=== PATIENT | male | born 1965 | race Caucasian/White ===

== ENCOUNTER 2018-01-23 11:37 | Emergency (ER) | payer BC ==
[2018-01-23 11:46] VITALS: BP 133/85
--- NOTE | 2018-01-23 12:01 | ED Physician Documentation ---
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 and has trouble with his RLE twisted knee on stairs several days ago was OK for a few days then aggravated it yesterday and now is is more painful, phylicia medially and swollen also knee is warm no fever prior ACL in 1988 Review of Systems Constitutional: denies: Fever Cardiac: denies: Chest pain / pressure Respiratory: denies: Dyspnea Musculoskeletal: reports: Joint pain Endocrine: denies: Easy bruising / bleeding Immunocompromised: denies: Immunocompromised PD PAST MEDICAL HISTORY - Present Medications Home Medications: Ambulatory Orders Medication Instructions Recorded Confirmed DULoxetine [Cymbalta] mg PO DAILY 01/23/18 Gabapentin mg PO 01/23/18 - Allergies Allergies/Adverse Reactions: Allergies Allergy/AdvReac Type Severity Reaction Status Date / Time No Known Drug Allergies Allergy Verified 01/23/18 11:45 PD ED PE NORMAL - Vitals Vital signs reviewed: Yes - Cardiac Cardiac: RRR - Respiratory Respiratory: No respiratory distress - Derm Derm: Normal color - Extremities Extremities: Other (LLE knee + effusion, warm, no erythema, able to range without pain, no ACL laxity appreciated, pain and catch medially with meniscal testing, no popliteal or calf TTP, MSV intact) Results - Vitals Vitals: Vital Signs - 24 hr 01/23/18 11:42 Temperature 36.9 C Heart Rate 91 Respiratory 16 Rate Blood Pressure 133/85 H O2 Saturation 99 Oxygen O2 Source Room air - Rads (name of study) knee Radiology: See rad report (OA, jt effsion, prior ACL) PD MEDICAL DECISION MAKING - ED course ED course: hx and exam suggest medial meniscus injury SO is concerned for infection 2/2 edema and warmth but there is no redness, no open wound or portal for infection and he is able to range knee well without sig pain, and the sx atrted after a twisting injury - so feel infection very unlikely - Sepsis Event Vital Signs: Vital Signs - 24 hr 01/23/18 11:42 Temperature 36.9 C Heart Rate 91 Respiratory 16 Rate Blood Pressure 133/85 H O2 Saturation 99 Oxygen O2 Source Room air Departure - Departure Disposition: 01 Home, Self Care Clinical Impression: Medial meniscus tear Qualifiers: Tear current or old: current Encounter type: initial encounter Meniscus tear of knee type: unspecified type Laterality: left Qualified Code(s): S83.242A - Other tear of medial meniscus, current injury, left knee, initial encounter Condition: Good Instructions: ED Meniscal Injury Knee Poss Follow-Up: [facility] [Provider Group] Comments: The mechanism of injury and the exam suggest a meniscal tear. At this point i do not think the knee is infected - although swollen and warm, the knee is not red and you are able to range it well and you have no fever. Recommend an GRAHAM wrap ice and elevation for the swelling, motrin and tylenol for the pain, and I have referred you to orthopedics If you get worse, especially if you develop a fever or the knee is red and becomes more painful to bend, please come back to the ER for us to see it again
--- NOTE | 2018-01-23 12:45 | XRAY Report ---
Procedure Date: 01/23/2018 Accession Number: [id number] / [id number] Procedure: XR - Knee 4 View LT CPT Code: FULL RESULT: EXAM: LEFT KNEE RADIOGRAPHY EXAM DATE: 01/23/2018 12:31 PM. CLINICAL HISTORY: Pain and swelling. COMPARISON: None. TECHNIQUE: 5 views. FINDINGS: Bones: Postoperative changes from ACL repair. No fractures or bone lesions. Joints: Joint effusion. Chondrocalcinosis is present. Minimal patellar marginal osteophyte formation. Soft Tissues: Normal. No soft tissue swelling. IMPRESSION: 1. No evidence of acute osseous abnormality. 2. Chondrocalcinosis. 3. Joint effusion. 4. Mild patellofemoral osteoarthritis. 5. Postoperative changes from ACL repair. [facility]
[2018-01-23] MEDS ORDERED: IBUPROFEN 400 MG TABLET PO STA (13:01)
[2018-01-23] MEDS ORDERED: ACETAMINOPHEN 325 MG TABLET PO STA (13:01)
== END 2018-01-23 13:19 | disposition home or self-care (01) ==
LOC: ED 11:37
DX: S83.242A Other tear of medial meniscus, current injury, left knee, initial encounter (principal); X50.9XXA Other and unspecified overexertion or strenuous movements or postures, initial encounter
CPT/HCPCS: 99283

== ENCOUNTER 2018-02-23 08:26 | Outpatient (CLI) | payer BC ==
--- NOTE | 2018-02-23 16:37 | MRI Report ---
Reason: KNEE JOINT PAIN,LEFT Procedure Date: 02/23/2018 Accession Number: [id number] / [id number] Procedure: MRI - Knee LT W/O CPT Code: FULL RESULT: EXAM: LEFT KNEE MRI WITHOUT CONTRAST EXAM DATE: 02/23/2018 09:24 AM. CLINICAL HISTORY: Knee joint pain, left. Patient reports history of surgery, instability. COMPARISON: Radiographs 01/23/2018. TECHNIQUE: Multiplanar, multisequence T1-weighted and fluid-sensitive sequences of the knee without contrast. Other: None. FINDINGS: Bones: Susceptibility artifact from internal fixation hardware from anterior cruciate ligament reconstruction moderately limits evaluation. No gross fracture or bone lesion. Articular Cartilage: Deep partial-thickness fissure/tear central aspect medial femoral condyle. Shallow partial-thickness loss and irregularity at the posterior aspect lateral tibial plateau. Deep partial-thickness fissure/tear at the midportion median ridge of the patella. Shallow partial-thickness loss and irregularity/fissuring at the central trochlea. Medial Meniscus: Intrasubstance degeneration at the body and posterior horn. Horizontal tear contacts the inferior articular surface posterior horn. Lateral Meniscus: Intrasubstance degeneration anterior horn, body, and posterior horn. Horizontal tear contacts the inferior articular surface. This is ill-defined with isointense signal. Cruciate Ligaments: Diffusely diminutive appearance of the anterior cruciate ligament graft. A few fibers versus scar may remain intact. Posterior cruciate ligament intact. Collateral Ligaments: The medial collateral and lateral collateral ligamentous structures are intact. Tendons: Postsurgical changes of the patellar tendon graft harvest. Mild thickening of the residual medial fibers. Quadriceps, semimembranosus, and popliteus tendons are unremarkable. Musculature: No edema or fatty atrophy. Other: Large joint effusion with synovitis. Moderate sized popliteal cyst with leak. No loose bodies. The medial and lateral retinacula are intact. Mild subcutaneous edema anteriorly. Postsurgical changes in Hoffa's fat pad. IMPRESSION: 1. High-grade partial versus complete disruption anterior cruciate ligament graft. 2. Intrasubstance degeneration medial meniscus with horizontal tear of the posterior horn. 3. Intrasubstance degeneration lateral meniscus with horizontal tear posterior horn. This may be partially healed given the isointense signal. 4. Large joint effusion with synovitis. 5. Moderate popliteal cyst with leak. 6. Mild tricompartmental cartilage loss with fissuring/tearing. [facility] MUSCULOSKELETAL RADIOLOGY SECTION
== END 2018-02-23 08:27 | disposition home or self-care (01) ==
LOC: DI 08:26
PROVIDERS: ATTEND Orthopaedic Surgery Sports Medicine
DX: T84.410A Breakdown (mechanical) of muscle and tendon graft, initial encounter (principal); M23.222 Derangement of posterior horn of medial meniscus due to old tear or injury, left knee; M23.252 Derangement of posterior horn of lateral meniscus due to old tear or injury, left knee; M25.462 Effusion, left knee; M65.9 Synovitis and tenosynovitis, unspecified; M66.0 Rupture of popliteal cyst; M23.92 Unspecified internal derangement of left knee

== ENCOUNTER 2018-02-24 07:56 | Outpatient (CLI) | payer BC ==
[2018-02-24 08:18] LABS: BASOPHILS % (AUTO) 0.4 %; EOSINOPHILS # (AUTO) 0.3 10^3/uL (0.0-0.7); EOSINOPHILS % (AUTO) 5.5 %; HGB - HEMOGLOBIN 14.2 g/dL (14.0-18.0); LYMPHOCYTES # (AUTO) 1.3 10^3/uL (1.5-3.5); LYMPHOCYTES % (AUTO) 23.5 %; MEAN CORPUSCULAR HGB CONC 34.2 g/dL (32.0-36.0); MEAN CORPUSCULAR VOLUME 87.6 fL (80.0-94.0); MEAN PLATELET VOLUME 7.4 fL (7.4-11.4); MONOCYTES # (AUTO) 0.4 10^3/uL (0.0-1.0); MONOCYTES % (AUTO) 6.3 %; NEUTROPHILS # (AUTO) 3.6 10^3/uL (1.5-6.6); NEUTROPHILS % (AUTO) 64.3 %; PLT - PLATELET COUNT 259 10^3/uL (130-450); RED BLOOD COUNT 4.72 10^6/uL (4.70-6.10); RED CELL DISTRIBUTION WIDTH 14.3 % (12.0-15.0); WHITE BLOOD COUNT 5.6 x10^3/uL (4.8-10.8)
[2018-02-24 08:39] LABS: ALBUMIN/GLOBULIN RATIO 1.2 (1.0-2.2); ALKALINE PHOSPHATASE 63 IU/L (42-121); ALT ALANINE AMINOTRANSFERASE 23 IU/L (10-60); AST ASPARTATE AMINOTRANSFERASE 22 IU/L (10-42); BILIRUBIN,TOTAL 0.7 mg/dL (0.2-1.0); BUN - BLOOD UREA NITROGEN 14 mg/dL (6-20); CARBON DIOXIDE - CO2 28 mmol/L (21-32); CHLORIDE 103 mmol/L (101-111); CHOLESTEROL 321 mg/dL; CREATININE 0.8 mg/dL (0.6-1.2); GFR - MDRD 102 (>89); GLUCOSE 116 mg/dL (70-100); HDL CHOLESTEROL 46 mg/dL; LDL CHOLESTEROL,CALCULATED 240 mg/dL; LDL/HDL RATIO 5.2 (<3.6); SODIUM 138 mmol/L (135-145); TOTAL PROTEIN 7.4 g/dL (6.7-8.2); VLDL CHOLESTEROL 35 mg/dL
== END 2018-02-24 07:57 | disposition home or self-care (01) ==
LOC: LAB 07:56
PROVIDERS: ATTEND Nurse Practitioner
DX: E78.2 Mixed hyperlipidemia (principal)
CPT/HCPCS: 36415; 80053; 80061; 83721; 85025

== ENCOUNTER 2018-03-11 12:07 | Day surgery (SDC) | payer BC ==
--- NOTE | 2018-03-11 11:55 | ANESTHESIA ---
Pre-Anesthesia VS, & Labs - Diagnosis Screening - Procedure Colonoscopy Height 5 ft 10 in Body Mass Index 30.1 - NPO >8 hours Home Medications and Allergies Home Medications: Ambulatory Orders Medication Instructions Recorded Confirmed DULoxetine [Cymbalta] 90 mg PO DAILY 01/23/18 02/24/18 Gabapentin 600 mg PO QDBREAKFAST 01/23/18 02/24/18 Gabapentin 1,200 mg PO .QDLUNCH,QDDINNER 02/24/18 02/24/18 Methocarbamol 750 mg PO TID PRN 02/24/18 02/24/18 DULoxetine [Cymbalta] 90 mg PO DAILY 01/23/18 Gabapentin 600 mg PO QDBREAKFAST 01/23/18 Gabapentin 1,200 mg PO .QDLUNCH,QDDINNER 02/24/18 Methocarbamol 750 mg PO TID PRN 02/24/18 Allergies/Adverse Reactions: Allergies Allergy/AdvReac Type Severity Reaction Status Date / Time No Known Drug Allergies Allergy Verified 02/24/18 09:58 Anes History & Medical History - Anesthetic History Anesthesia Complications: reports: No previous complications Family history of Anesthesia Complications: Denies Family history of Malignant Hyperthermia: Denies - Medical History Cardiovascular: reports: High cholesterol Pulmonary: reports: Sleep apnea Gastrointestinal: reports: None Urinary: reports: None Neuro: reports: None Musculoskeletal: reports: Osteoarthritis, Chronic back pain Endocrine/Autoimmune: reports: None Blood Disorders: reports: None Skin: reports: None Smoking Status: Never smoker - Surgical History Orthopedic: ACL reconstruction, Spine surgery Exam General: Alert, Oriented x3, Cooperative, No acute distress Mouth Opening: Greater than 4 Fingerbreadths Neck Mobility: Normal Mallampati classification: I Thyromental Distance: greater than 6 cm Respiratory: Lungs clear, Normal breath sounds, No respiratory distress, No accessory muscle use Cardiovascular: Regular rate Neurological: Normal gait, Normal speech Mental/Cognitive Status: Alert/Oriented X3, Normal for patient Cognitive Status: Within normal limits Plan Anesthesia Type: MAC Consent for Procedure(s) Verified and Reviewed: Yes Code Status: Attempt Resuscitation ASA classification: 2-Mild systemic disease Is this case an emergency?: No
[~2018-03-11 12:07] MED LIST: GLYCOPYRROLATE 1 MG/5 ML VIAL IVP ONE; KETAMINE 500 MG/10 ML VIAL IVP ONE; MIDAZOLAM 2 MG/2 ML VIAL IVP ONE; PROPOFOL 200 MG/20 ML VIAL IVP ONE
[2018-03-11] MEDS ORDERED: LACTATED RINGERS 1,000 ML IV ONE (12:24)
[2018-03-11 14:10] VITALS: BP 122/85
== END 2018-03-11 12:08 | disposition home or self-care (01) ==
LOC: SDS 12:07
PROVIDERS: ATTEND Internal Medicine Gastroenterology
PROC: 0DBP8ZZ Excision of Rectum, Via Natural or Artificial Opening Endoscopic (ICD-10-PCS; principal; 2018-03-11 12:45)
DX: Z12.11 Encounter for screening for malignant neoplasm of colon (principal); D12.8 Benign neoplasm of rectum; K57.30 Diverticulosis of large intestine without perforation or abscess without bleeding; G47.30 Sleep apnea, unspecified; R06.83 Snoring; E66.9 Obesity, unspecified; F41.9 Anxiety disorder, unspecified; G89.29 Other chronic pain; M54.42 Lumbago with sciatica, left side; M19.90 Unspecified osteoarthritis, unspecified site; Z68.30 Body mass index [BMI] 30.0-30.9, adult
CPT/HCPCS: 45380; J7120

== ENCOUNTER 2018-05-12 06:09 | Day surgery (SDC) | payer BC ==
[2018-05-12] MEDS ORDERED: ceFAZolin 2 GM/50 ML 2 GM/50 ML BAG IV ONE (06:12)
[2018-05-12] MEDS ORDERED: LACTATED RINGERS 1,000 ML IV ONE ×2 (06:31→10:04)
--- NOTE | 2018-05-12 07:03 | ANESTHESIA ---
Pre-Anesthesia VS, & Labs - Diagnosis Left knee anterior cruciate ligament tear, medial and laberal meniscal tear - Procedure Left knee revision arthroscopically assisted ACL reconstruction with allograft, partial medial and lateral meniscectomy, possible shaving chondroplasty Vital Signs: Temp Pulse Resp BP Pulse Ox 36.4 C L 75 18 140/86 H 97 05/12/18 06:24 05/12/18 06:24 05/12/18 06:24 05/12/18 06:24 05/12/18 06:24 Height 5 ft 10 in Weight (kg) 94 kg Body Mass Index 30.1 - NPO >8 hours Home Medications and Allergies Home Medications: Ambulatory Orders Colestipol HCl 2 gm PO BID 05/06/18 DULoxetine [Cymbalta] 90 mg PO DAILY 01/23/18 Gabapentin 600 mg PO QDBREAKFAST 01/23/18 Gabapentin 1,200 mg PO .QDLUNCH,QDDINNER 02/24/18 Methocarbamol 750 mg PO TID PRN 02/24/18 Colestipol HCl 2 gm PO BID 05/06/18 Allergies/Adverse Reactions: Allergies Allergy/AdvReac Type Severity Reaction Status Date / Time No Known Drug Allergies Allergy Verified 02/24/18 09:58 Anes History & Medical History - Anesthetic History Anesthesia Complications: reports: No previous complications - Medical History Cardiovascular: reports: High cholesterol Pulmonary: reports: Sleep apnea (Possible, snores at night. No sleep study or CPAP) Gastrointestinal: reports: None Urinary: reports: None Neuro: reports: None Musculoskeletal: reports: Osteoarthritis, Chronic back pain (Neuropathy in left foot) Endocrine/Autoimmune: reports: None Blood Disorders: reports: None Skin: reports: None Smoking Status: Never smoker Psychosocial: reports: Depression - Surgical History General: Colonoscopy Orthopedic: ACL reconstruction, Shoulder arthroplasty, Spine surgery Exam General: Alert, Oriented x3, Cooperative, No acute distress Dental: WNL Mouth Openin Fingerbreadth Neck Mobility: Normal Mallampati classification: II Thyromental Distance: 4-6 cm Respiratory: Lungs clear, Normal breath sounds, No respiratory distress, No accessory muscle use Cardiovascular: Regular rate, Normal S1, Normal S2, No murmurs Mental/Cognitive Status: Alert/Oriented X3, Normal for patient Plan Anesthesia Type: General, Femoral Block (Left) Regional Block: Per Surgeon's request for Post Op pain control Consent for Procedure(s) Verified and Reviewed: Yes Code Status: Attempt Resuscitation ASA classification: 2-Mild systemic disease Is this case an emergency?: No
[2018-05-12] MEDS ORDERED: BACITRACIN 50,000 UNIT VIAL ONE (07:27)
[2018-05-12] MEDS ORDERED: SODIUM CHLORIDE 0.9% 10 ML ONE (07:27)
[2018-05-12] MEDS ORDERED: BUPIVACAINE 0.25% PF 30 ML VIAL ONE (08:11)
[2018-05-12] MEDS ORDERED: ONDANSETRON 4 MG/2 ML VIAL IVP ONE (08:15)
[2018-05-12] MEDS ORDERED: PROPOFOL 200 MG/20 ML VIAL IVP ONE (08:15)
[2018-05-12] MEDS ORDERED: KETOROLAC 30 MG/ML VIAL IVP ONE (08:15)
[2018-05-12] MEDS ORDERED: ROPIVACAINE 0.5% PF 20 ML AMPULE EP ONE (08:15)
[2018-05-12] MEDS ORDERED: HYDROmorphone 1 MG/ML CARPUJECT IVP ONE (08:15)
[2018-05-12] MEDS ORDERED: fentaNYL 100 MCG/2 ML VIAL IVP ONE (08:15)
[2018-05-12] MEDS ORDERED: MIDAZOLAM 2 MG/2 ML VIAL IVP ONE (08:15)
[2018-05-12] MEDS ORDERED: ePHEDrine 50 MG/ML AMP IVP ONE (08:15)
[2018-05-12] MEDS ORDERED: DEXAMETHASONE 4 MG/ML VIAL IVP ONE (08:15)
[2018-05-12] MEDS ORDERED: BUPIVACAINE 0.25% PF 30 ML VIAL SUBQ ONE (08:31)
--- NOTE | 2018-05-12 10:34 | IMMEDIATE POSTOPERATIVE NOTE ---
Immediate Postoperative Note - Procedure Note Procedure Date: 05/12/18 Pre-Op Diagnosis: RIGHT ACL TEAR, S/P PREVIOUS RECON, MMT, LMT, CHONDROMALCIA Procedure: RIGHT SCOPE ASSISTED ACL RECON W/ ALLO, PARTIAL MED/LAT MEN, SHAVING CHONDR Post-Op Diagnosis: SAME Primary Surgeon: SIM Raymond Mill Operator: ZACHARIAH Anesthesia Type: General LMA, Local, Regional block Findings: ACL deficient knee medial and lateral meniscus tears chondromalacia medial and patellofemoral compartments. Complications: No complications Estimated Blood Loss (in cc): 100 Plan of Care: Discharge to home care when meets criteria Patient will be nonweightbearing left lower extremity while femoral nerve block is working. When femoral nerve block is worn off he may bear weight with the knee brace locked fully straight with crutches and assistance as needed. When at rest he may remove the brace and work on range of motion. Patient may ice intermittently but should take breaks and do skin checks. He will follow-up in 10-14 days or sooner should problems questions or worsening of his condition arise.
[2018-05-12] MEDS ORDERED: oxyCODONE 5 MG TABLET PO PRN (10:36)
[2018-05-12] MEDS ORDERED: ONDANSETRON 4 MG/2 ML VIAL IVP PRN (10:36)
[2018-05-12] MEDS ORDERED: oxyCODONE 5 MG TABLET ONE (11:00)
[2018-05-12 11:23] VITALS: BP 150/92
--- NOTE | 2018-05-12 15:29 | OPERATIVE REPORT ---
DATE OF SERVICE: 05/12/2018 Physician: Александр Rodarte MD SURGEON: Александр Rodarte MD PRINTING MACHINIST: None. ANESTHESIA PROVIDER: Aicha De Jesus CRNA. POSTOPERATIVE DIAGNOSES 1. Left knee anterior cruciate ligament grade 3 sprain, status post previous anterior cruciate ligament reconstruction. 2. Left knee medial meniscus tear. 3. Left knee lateral meniscus tear. 4. Left knee chondromalacia, multiple compartments. POSTOPERATIVE DIAGNOSES 1. Left knee anterior cruciate ligament grade 3 sprain, status post previous anterior cruciate ligament reconstruction. 2. Left knee medial meniscus tear. 3. Left knee lateral meniscus tear. 4. Left knee chondromalacia, multiple compartments. PROCEDURE 1. Left knee arthroscopically-assisted ACL reconstruction revision with posterior tibial tendon allograft. 2. Left knee arthroscopic partial medial meniscectomy. 3. Left knee arthroscopic partial lateral meniscectomy. 4. Left knee arthroscopic shaving chondroplasty. HISTORY OF PRESENT ILLNESS: The patient is an active, 53-year-old gentleman who has had multiple injuries to his left lower extremity with a previous ACL reconstruction and other left lower extremity dysfunction secondary to nerve injury, who is having symptomatic instability of his left knee affecting his activities of daily living. He is indicated for operative treatment. Please see previous discussion for risks, benefits, and alternatives reviewed in the clinic with him and his , Coni. These are again highlighted in the preoperative care unit. Their questions are answered. The patient verbalizes wish to proceed with operative treatment. Informed consent was given. INTRAOPERATIVE FINDINGS: The patient noted to have full extension to just above 180 degrees of full extension and to approximately 3-5 degrees of hyperextension. Flexion is over 140 degrees. Unstable ACL exam with anterior drawer, Kimberley and pivot shift testing, intraarticular. There were medial and lateral meniscal tears, complex in nature. Medial was undersurface body and posterior horn, lateral is free edge and undersurface body and posterior horn. ACL grade 3 sprain. Chondromalacia greatest in the medial and patellofemoral compartments up to grade 2-3. Post femoral fixation of the graft, there is excellent isometry, good lateral and anterior superior clearance. Post femoral fixation, there is reconstruction of the ACL now demonstrating ACL stability with full range of motion, negative pivot shift, and negative anterior drawer and Kimberley testing. PROCEDURE: On 05/12/2018, patient is identified in the preoperative care unit, and he identifies the left knee as the operative site; this is signed. Patient is brought to the operating room. General anesthesia is administered after femoral block is administered. LMA is used, and preoperative antibiotics used. Patient was placed in a comfortable and safe position for head, neck, and extremities. Left thigh has a well-padded, tourniquet placed high on the left thigh, taking care to avoid encompassing genitalia. Patient's left knee is shaved of hair. At this point, tourniquet is placed safely. At this point, patient's left knee and left lower extremity is pre-scrubbed with chlorhexidine solution and then prepped and draped in the usual sterile fashion. At this time, surgical pause identifies the left knee as the operative site. At this point, local anesthetic is used anteromedially, anterolaterally, and superomedially. A small stab incision is made superomedially and anterolaterally. Scope was introduced into the notch, then in the suprapatellar pouch. Fluid was infused. Outflow port was created superomedially and then outside-in technique localizes medial incision, which was made, and the probe was brought into the knee. Please see operative findings. At this point, a combination of meniscal basket and shaver is used to debride the nonviable and torn portions of the medial meniscus, with valgus maneuver opening up the medial compartment to protect the articular cartilage. Once this is debrided and noted to be stable, then chondroplasty is performed, leaving as much healthy and stable cartilage as possible, and this is then probed and noted to be stable. Attention is directed towards lateral meniscus, where a varus maneuver opens up the lateral compartment, and the nonviable and torn portions of the lateral meniscus are debrided and then smoothed out for smooth transitions, using a shaver to avoid or decrease risk of propagation. The patellofemoral joint has chondroplasty performed, leaving as much healthy cartilage as possible. The cartilage surfaces are probed and noted to be stable. Medial and lateral gutters and suprapatellar pouch clear. At this point, the knee is flexed to 90 degrees, and ACL residual fibers are debrided. The ACL footprint is debrided. [id number] position is achieved with a notchplasty. At this point, the tibial incision is made, estimated by using the tibial guide, a 57.5 based on anatomy and graft size. At this point, a small incision is made over the anteromedial tibia, and then the guide pin is brought to the ACL footprint just posterior to the edge horn of the lateral meniscus and appropriately centered, and then this was reamed to a 9 mm reamer with appropriate debridement of the internal and external surfaces. At this point, [id number] guide was used to place the 1:30 position, such that there would be a half-millimeter back wall, and this is reamed to a depth of approximately 25 such that the graft could be seated to that depth. Bony debris is evacuated, and then once the back wall is confirmed to be in appropriate position and of appropriate thickness, the previously prepared posterior tibial tendon graft, which had been whip-stitched with #2 FiberWire, is draped over an ACL TightRope, and then this device and the grafts are pulled into place after being sized at a 9 mm graft that seated to a depth of 25. The ACL TightRope is confirmed to be fixed on the lateral aspect of the femur with significant tension placed; this was toggled, and then isometry is tested. Please see operative findings. At this point, the knee is flexed about 30 degrees, the posterior drawer is administered, graft limbs are pulled taut, and then a 10 mm BioComposite interference screw is placed well while the graft is tensioned and the posterior drawer is administered. This achieves excellent compression fixation. The graft is then reexamined intraarticularly. Please see operative findings for knee exam. At this point, the ACL TightRope is tied using arthroscopic ribbon tier, and then those limbs are cut. The residual graft limbs distally are cut. The wounds are copiously irrigated. The joint is copiously irrigated. The graft is noted to be under appropriate tension with good range of motion and clearance. At this point, the joint is copiously irrigated and evacuated. Tibial incision has 3-0 Vicryl placed, and then interrupted nylon sutures are used to close the remaining wounds after copious irrigation, and Xeroform dressing is applied, dry sterile dressing, 4 x 4s, as well as ABD and Sof-Rol, as well as Amish wrap. The skin is protected with Sof-Rol, and then the patient's requested icing device is placed over this, and then a secondary dressing is placed. The patient is placed in a hinged knee brace locked in extension. Patient tolerated the procedure well. Instrument and sponge counts are correct. The patient is transferred to the recovery room in stable condition. Patient will follow standard postoperative left knee ACL reconstruction protocol. He will be nonweightbearing while the femoral block is working. He will be weightbearing as tolerated with the knee brace locked straight, with crutches and assistance as needed after the block wears off. When at rest, he will remove the brace and work on range of motion. He is advised to do skin checks and protect the skin against the ice machine. He will follow up in 10-14 days, or sooner should problems or questions arise. Patient's is contacted after the case, case was discussed; arthroscopic photos reviewed with Coni. Postoperative instructions reviewed, and antibiotics and analgesic medication prescription is renewed. They deny any contraindications to these medication and will use as directed, and will notify us prior to followup visit should problems or questions or worsening conditions arise. TD: 05/12/2018 11:36 LICO
== END 2018-05-12 06:10 | disposition home or self-care (01) ==
LOC: SDS 06:09
PROVIDERS: ATTEND Orthopaedic Surgery Sports Medicine
PROC: 0MRP4KZ Replacement of Left Knee Bursa and Ligament with Nonautologous Tissue Substitute, Percutaneous Endoscopic Approach (ICD-10-PCS; 2018-05-12)
PROC: 0SBD4ZZ Excision of Left Knee Joint, Percutaneous Endoscopic Approach (ICD-10-PCS; principal; 2018-05-12 07:30)
DX: T84.418A Breakdown (mechanical) of other internal orthopedic devices, implants and grafts, initial encounter (principal); Y83.2 Surgical operation with anastomosis, bypass or graft as the cause of abnormal reaction of the patient, or of later complication, without mention of misadventure at the time of the procedure; M23.252 Derangement of posterior horn of lateral meniscus due to old tear or injury, left knee; M23.222 Derangement of posterior horn of medial meniscus due to old tear or injury, left knee; M94.262 Chondromalacia, left knee; G62.9 Polyneuropathy, unspecified; G89.29 Other chronic pain; M54.42 Lumbago with sciatica, left side; M19.90 Unspecified osteoarthritis, unspecified site; F32.9 Major depressive disorder, single episode, unspecified; E78.5 Hyperlipidemia, unspecified
CPT/HCPCS: 29880; 29888; A9270; C1713; C1762; J0690; J1170; J7120

== ENCOUNTER 2018-06-11 08:51 | Outpatient (CLI) | payer BC ==
[2018-06-11 12:53] LABS: BUN - BLOOD UREA NITROGEN 12 mg/dL (6-20); CARBON DIOXIDE - CO2 29 mmol/L (21-32); CHLORIDE 102 mmol/L (101-111); CHOL/HDL RATIO 5.6 (<5.0); CHOLESTEROL 293 mg/dL; GFR - MDRD 79 (>89); GLUCOSE 98 mg/dL (70-100); HDL CHOLESTEROL 52 mg/dL; LDL CHOLESTEROL,CALCULATED 205 mg/dL; LDL/HDL RATIO 3.9 (<3.6); SODIUM 137 mmol/L (135-145); VLDL CHOLESTEROL 36 mg/dL
== END 2018-06-11 23:59 | disposition home or self-care (01) ==
LOC: LAB.N 08:51
PROVIDERS: ATTEND Nurse Practitioner
DX: E78.2 Mixed hyperlipidemia (principal)
CPT/HCPCS: 36415; 80048; 80061; 83721

== ENCOUNTER 2018-09-10 08:00 | Outpatient (CLI) | payer BC ==
[2018-09-10 13:22] LABS: ALBUMIN 3.9 g/dL (3.2-5.5); ALBUMIN/GLOBULIN RATIO 1.2 (1.0-2.2); ALKALINE PHOSPHATASE 66 IU/L (42-121); ALT ALANINE AMINOTRANSFERASE 18 IU/L (10-60); AST ASPARTATE AMINOTRANSFERASE 22 IU/L (10-42); BILIRUBIN,TOTAL 0.6 mg/dL (0.2-1.0); BUN - BLOOD UREA NITROGEN 17 mg/dL (6-20); CALCIUM 9.1 mg/dL (8.5-10.3); CARBON DIOXIDE - CO2 26 mmol/L (21-32); CHLORIDE 105 mmol/L (101-111); CHOL/HDL RATIO 5.5 (<5.0); CHOLESTEROL 306 mg/dL; CREATININE 0.8 mg/dL (0.6-1.2); GFR - MDRD 102 (>89); GLUCOSE 100 mg/dL (70-100); HDL CHOLESTEROL 56 mg/dL; LDL CHOLESTEROL,CALCULATED 213 mg/dL; LDL/HDL RATIO 3.8 (<3.6); SODIUM 137 mmol/L (135-145); TOTAL PROTEIN 7.1 g/dL (6.7-8.2); VLDL CHOLESTEROL 37 mg/dL
== END 2018-09-10 23:59 | disposition home or self-care (01) ==
LOC: LAB.N 08:00
PROVIDERS: ATTEND Nurse Practitioner
DX: E78.2 Mixed hyperlipidemia (principal)
CPT/HCPCS: 36415; 80053; 80061; 83721